=== PATIENT | male | born 1980 | race Caucasian/White ===

== ENCOUNTER 2016-10-09 11:40 | Emergency (ER) | payer OTHER ==
[~2016-10-09] VITALS: Ht 175.3 cm; Wt 103.0 kg
[~2016-10-09 11:40] MED LIST: FIORIC PO
[2016-10-09 11:57] VITALS: BP 146/92; PULSE 81; RESP 16; TEMP 98.7; O2SAT 98
--- NOTE | 2016-10-09 12:06 | PD ---
HPI Chief Complaint: Back/ Neck Pain or Injury Time Seen by Provider: 12:06 Travel History International Travel<30 days: No Contact w/Intl Traveler<30days: No Traveled to known affect area: No History of Present Illness HPI 35-year-old male presents to emergency Department with sudden onset lower back pain and spasm since yesterday. Patient works at a local [employer] operation, states he did not feel well yesterday and went home. Patient states he laid down most of the afternoon, which she feels causes back to stiffen up. He states he woke up this morning with back pain and stiffness and try to go to work. He states his pain worsened to the point where he could not work. Patient denies numbness, tingling, or radicular symptoms as needed lower extremity. He describes the pain as an 8/10 and spasming. Patient states he's had pain similar to this in the past but not to this extent. He denies any specific injury. Patient states she is allergic to tramadol. PFSH Past Medical History Diminished Hearing: No Immunizations Current: Yes Past Surgical History Abdominal Surgery: Yes (HERNIA REPAIR) Appendectomy: Yes Social History Alcohol Use: Yes (SOCIAL) Tobacco Use: No Substance Use: No Allergies-Medications (Allergen,Severity, Reaction): Coded Allergies: Tramadol (Verified Allergy, Severe, THROAT CLOSING, 10/09/16) Reported Meds & Prescriptions Reported Meds & Active Scripts Active No Active Prescriptions or Reported Medications Review of Systems Except as stated in HPI: all other systems reviewed are Neg General / Constitutional: No: Fever Eyes: No: Visual changes HENT: No: Headaches Cardiovascular: No: Chest Pain or Discomfort Respiratory: No: Shortness of Breath Gastrointestinal: No: Abdominal Pain Genitourinary: No: Dysuria Musculoskeletal: No: Pain Skin: No Rash Neurologic: No: Weakness Psychiatric: No: Depression Endocrine: No: Polydipsia Hematologic/Lymphatic: No: Easy Bruising Physical Exam Narrative GENERAL: Patient appears in moderate distress. SKIN: Warm and dry. Normal color. Normal turgor. No rash. HEAD: Atraumatic. Normocephalic. EYES: Pupils equal and round. No scleral icterus. No injection or drainage. ENT: No nasal bleeding or discharge. Mucous membranes pink and moist. NECK: Trachea midline. Supple nontender. CARDIOVASCULAR: Regular rate and rhythm. RESPIRATORY: No accessory muscle use. Clear to auscultation. Breath sounds equal bilaterally. GASTROINTESTINAL: Abdomen soft, non-tender, nondistended. Hepatic and splenic margins not palpable. MUSCULOSKELETAL: Extremities without clubbing, cyanosis, or edema. No obvious deformities. Patient has bilateral lower lumbar tenderness with palpation, but no bony tenderness or step-off in the lower lumbar spine. Negative straight leg raise pain bilaterally. NEUROLOGICAL: Awake and alert. No obvious cranial nerve deficits. Motor grossly within normal limits. Five out of 5 muscle strength in the arms and legs. Normal speech. PSYCHIATRIC: Appropriate mood and affect; insight and judgment normal. Data Data Last Documented VS Vital Signs Date Time Temp Pulse Resp B/P Pulse Ox O2 Delivery O2 Flow Rate FiO2 10/09/16 11:57 98.7 81 16 146/92 98 Orders Ketorolac Inj (Toradol Inj) (10/09/16 12:30) [facility] Medical Decision Making Medical Screen Exam Complete: Yes Emergency Medical Condition: Yes Differential Diagnosis Low back pain. Muscle spasm. Lumbago. Narrative Course Patient is medically stable at time of exam. Radiographic imaging is not felt warranted based on my history and physical. Patient is given Toradol 60 mg IM. Patient sent home with ibuprofen 800 mg 3 times daily with food #30. Patient is to take extra strength Tylenol 1000 mg every 6 hours #60. Patient given Norflex 100 mg twice a day #10. Patient Is to use heat, gentle stretching, and follow-up with local primary care physician. Note for work is given. Patient can return to emergency department if symptoms worsen as discussed. Diagnosis Primary Impression: Acute low back pain Qualified Code: M54.5 - Acute bilateral low back pain without sciatica Additional Impression: Muscle spasm of back Referrals: Primary Care Physician Patient Instructions: Acute Low Back Pain (ED), General Instructions, Lower Back Exercises (ED), Upper Back Exercises (GEN) Departure Forms: Work Release Enter return to work date: Oct 11, 2016 Additional Instructions: Radiographic imaging is not felt warranted based on my history and physical. Patient is given Toradol 60 mg IM. Patient sent home with ibuprofen 800 mg 3 times daily with food #30. Patient is to take extra strength Tylenol 1000 mg every 6 hours #60. Patient given Norflex 100 mg twice a day #10. Patient Is to use heat, gentle stretching, and follow-up with local primary care physician. Note for work is given. Patient can return to emergency department if symptoms worsen as discussed. Med/Other Pt SpecificInfo: Prescription(s) given Scripts No Active Prescriptions or Reported Meds Disposition: 01 DISCHARGE HOME Condition: Stable Eduardo Agudelo Oct 09, 2016 12:06
[2016-10-09] MEDS ORDERED: KETOROLAC TROMETHAMINE 60 MG/2 ML (IM) VIAL IM ONE (12:30)
[2016-10-09] MEDS ORDERED: ORPH100T99 PO (12:41)
[2016-10-09] MEDS ORDERED: IBUP800T23 PO (12:41)
[2016-10-09] MEDS ORDERED: EXTR500C PO (12:50)
== END 2016-10-09 12:55 | disposition home or self-care (01) ==
LOC: PHEFT 11:40
DX: M54.5 Low back pain (principal); M62.830 Muscle spasm of back
CPT/HCPCS: 96372; 99283; J1885

== ENCOUNTER 2016-10-19 06:31 | Emergency (ER) | payer OTHER ==
[~2016-10-19] VITALS: Ht 175.3 cm; Wt 102.0 kg
[~2016-10-19 06:31] MED LIST changes: +EXTR500C PO; -FIORIC PO; +IBUP800T23 PO; +ORPH100T99 PO
[2016-10-19 06:35] VITALS: BP 138/92; PULSE 74; RESP 16; TEMP 98.4; O2SAT 96
[2016-10-19 07:05] VITALS: RESP 16
[2016-10-19] MEDS ORDERED: LORazepam 2 MG/ML VIAL IM ONE (07:30)
[2016-10-19] MEDS ORDERED: KETOROLAC TROMETHAMINE 60 MG/2 ML (IM) VIAL IM ONE (07:30)
[2016-10-19] MEDS ORDERED: MORPHINE SULFATE 8 MG/ML INJ IM ONE (07:30)
--- NOTE | 2016-10-19 07:34 | PD ---
HPI . Low back pain Chief Complaint: Back/ Neck Pain or Injury Time Seen by Provider: 07:28 Travel History International Travel<30 days: No Contact w/Intl Traveler<30days: No Traveled to known affect area: No History of Present Illness HPI Patient presents with low back pain which started about 10 days ago. He states the pain started acutely when he tried to get out of the bed about 10 days ago. He was seen here at that time and was given prescriptions for Motrin, Tylenol and Norflex. He was given instructions to do stretching exercises. He states that he has done all of that and has also seen a chiropractor but he is worse rather than better. He states that he now has pain radiating down his left leg. He denies any associated fever or incontinence. He has not noted any exacerbating factors. He states that the pain is relieved temporarily by stretching. PFSH Past Medical History Diminished Hearing: No Inguinal Hernia: Yes (right groin repair) Musculoskeletal: Yes (back pain) Immunizations Current: Yes Tetanus Vaccination: < 5 Years Influenza Vaccination: No Past Surgical History Abdominal Surgery: Yes (HERNIA REPAIR, right groin ) Appendectomy: Yes Social History Alcohol Use: Yes (SOCIAL-beer) Tobacco Use: No Substance Use: No Allergies-Medications (Allergen,Severity, Reaction): Coded Allergies: Tramadol (Verified Allergy, Severe, THROAT CLOSING, 10/19/16) Reported Meds & Prescriptions Reported Meds & Active Scripts Active Acetaminophen Extra Strength (Acetaminophen) 500 Mg Cap 1,000 Mg PO Q6H PRN Orphenadrine CR (Orphenadrine Citrate) 100 Mg Tab 100 Mg PO Q12HR Ibuprofen 800 Mg Tab 800 Mg PO Q8H PRN Review of Systems Except as stated in HPI: all other systems reviewed are Neg General / Constitutional: No: Fever, Chills Genitourinary: No: Incontinence Musculoskeletal: Positive: Myalgias, Pain Neurologic: No: Weakness, Paresthesia, Incontinence Physical Exam Narrative GENERAL: Awake and alert. He is standing beside the stretcher flexed at the waist and supporting himself on the stretcher. SKIN: Warm and dry. CARDIOVASCULAR: Regular rate and rhythm. RESPIRATORY: No accessory muscle use. MUSCULOSKELETAL: No obvious deformities. No edema. Tender in the lower lumbar spine and to the left lower lumbar spine. NEUROLOGICAL: Awake and alert. No obvious cranial nerve deficits. Motor grossly within normal limits. Normal speech. Normal gait. PSYCHIATRIC: Appropriate mood and affect; insight and judgment normal. Data Data Last Documented VS Vital Signs Date Time Temp Pulse Resp B/P Pulse Ox O2 Delivery O2 Flow Rate FiO2 10/19/16 07:05 16 10/19/16 06:35 98.4 74 138/92 96 Orders Spine, Lumbar Comp W/Obliq (10/19/16 07:28) Ketorolac Inj (Toradol Inj) (10/19/16 07:30) Lorazepam Inj (Ativan Inj) (10/19/16 07:30) Morphine Inj (Morphine Inj) (10/19/16 07:30) [facility] Medical Decision Making Medical Screen Exam Complete: Yes Emergency Medical Condition: Yes Medical Record Reviewed: Yes (patient was seen here on 10/09. He was given prescriptions for Motrin and Norflex and was instructed to take Tylenol. He was also instructed to use heat and to do stretching exercises.) Differential Diagnosis Differential diagnosis includes but is not limited to degenerative disc disease , spinal stenosis, lumbar radiculopathy, muscular pain., kidney colic, pyelonephritis, AAA. Narrative Course Patient presents with continued low back pain. He did not have any imaging studies done here on 10/09. I have ordered plain films. In the meantime, he will be treated with IM Toradol, IM morphine and IM Ativan. Last Impressions Lumbar Spine X-Ray 10/19/16727 Signed Impressions: Service Date/Time: Wednesday, October 19, 2016 07:39 - CONCLUSION: No significant or acute lumbar spine abnormality is identified. There may be mild decreased disc height at L5-S1. Saleem Zheng MD The lumbar spine films were independently viewed by me. He has loss of the normal lordotic curvature. Diagnosis Primary Impression: Acute low back pain Qualified Code: M54.42 - Acute left-sided low back pain with left-sided sciatica Additional Impression: Muscle spasm of back Referrals: Tong Davis MD 3 days Patient Instructions: General Instructions, Narcotic given in the ED Med/Other Pt SpecificInfo: Prescription(s) given Scripts Cyclobenzaprine (Flexeril)10 Mg Tab10 Mg PO TID #90 TAB Ref 0 Prov:Poly Vuong MD 3/10/17 Hydrocodone-Acetaminophen ([place])5-325 mg Tab1-2 Tab PO Q6H PRN (PAIN) #12 TAB Ref 0 Prov:Poly Vuong MD 10/19/16 Prednisone (48) 10 mg tab Dose Pack 10 Mg Dspk10 Mg PO DIRECTED #1 DSPK Ref 0 Prov:Poly Vuong MD 10/19/16 Disposition: 01 DISCHARGE HOME Condition: Stable Poly Vuong MD Oct 19, 2016 07:34
--- NOTE | 2016-10-19 08:10 | RADHPO ---
EXAM DATE/TIME: 10/19/2016 07:39 [facility] COMPARISON: No previous studies available for comparison. INDICATIONS : Low back pain with no known injury. MEDICAL HISTORY : None. SURGICAL HISTORY : None. ENCOUNTER: Initial ACUITY: 3 days PAIN SCORE: 10/10 LOCATION: Left lumbar spine FINDINGS: 5 views of the lumbar spine demonstrate 5 nonrib-bearing lumbar vertebral bodies. No fracture or comp ression deformity is present. There is minimal decreased disc height at L5-S1. Remaining disc heights are preserved. No anterolisthesis, retrolisthesis, or pars defects are visualized. Pelvic bones and soft tissues demonstrate no acute finding. CONCLUSION: No significant or acute lumbar spine abnormality is identified. There may be mild decreased disc heig ht at L5-S1. Saleem Zheng MD on October 19, 2016 at 8:06 Board Certified Radiologist. This report was verified electronically.
[2016-10-19] MEDS ORDERED: PRED10PA2 PO (08:21)
[2016-10-19] MEDS ORDERED: CYCL1TAB29 PO (08:21)
[2016-10-19] MEDS ORDERED: NORC5TAB PO (08:21)
== END 2016-10-19 09:02 | disposition home or self-care (01) ==
LOC: PHED 06:31 → PHEFT 09:02
DX: M54.42 Lumbago with sciatica, left side (principal)
CPT/HCPCS: 72110; 96372; 96374; 99283; J1885; J2060; J2270

== ENCOUNTER 2017-02-02 08:21 | Emergency (ER) | payer OTHER ==
[~2017-02-02] VITALS: Ht 175.3 cm; Wt 101.5 kg
[~2017-02-02 08:21] MED LIST changes: +CYCL1TAB29 PO; -IBUP800T23 PO; +NORC5TAB PO; -ORPH100T99 PO; +PRED10PA2 PO
[2017-02-02 08:30] VITALS: BP 139/96; PULSE 90; RESP 16; TEMP 98.1; O2SAT 98
[2017-02-02] MEDS ORDERED: KETOROLAC TROMETHAMINE 60 MG/2 ML (IM) VIAL IM ONE (09:30)
[2017-02-02] MEDS ORDERED: NAPR-239 PO (09:32)
[2017-02-02] MEDS ORDERED: CODE30TA2 PO (09:32)
--- NOTE | 2017-02-02 09:32 | PD ---
HPI Chief Complaint: Pain: Acute or Chronic Time Seen by Provider: 09:11 Travel History International Travel<30 days: No Contact w/Intl Traveler<30days: No Traveled to known affect area: No History of Present Illness HPI PATIENT GIVES HISTORY OF PAIN AT BASE OF TOE FOR MONTHS USUALLY AFFECTING HIS RIGHT TOE BUT OVER LAST TWO DAYS IT HAS BEEN HIS BASE OF LEFT TOE...DENIES FEVER /SKIN DISCOLORATION AT THIS TIME PFSH Past Medical History Diminished Hearing: No Inguinal Hernia: Yes (right groin repair) Musculoskeletal: Yes (back pain) Immunizations Current: Yes Tetanus Vaccination: Unknown Past Surgical History Abdominal Surgery: Yes (HERNIA REPAIR, right groin ) Appendectomy: Yes Social History Alcohol Use: Yes (SOCIAL-beer) Tobacco Use: No (NEVER) Substance Use: No Allergies-Medications (Allergen,Severity, Reaction): Coded Allergies: Tramadol (Verified Allergy, Severe, Throat swelling , 02/02/17) Reported Meds & Prescriptions Reported Meds & Active Scripts Active Naproxen EC (Naproxen) 375 Mg Tabdr 375 Mg PO BID Codeine-Acetaminophen 30-300 mg Tab 1 Tab PO Q4H PRN Review of Systems Except as stated in HPI: all other systems reviewed are Neg Musculoskeletal: Positive: Pain (TO BASE OF LEFT TOE) Physical Exam Narrative GENERAL: SKIN: Warm and dry. HEAD: Atraumatic. Normocephalic. EYES: Pupils equal and round. No scleral icterus. No injection or drainage. ENT: No nasal bleeding or discharge. Mucous membranes pink and moist. NECK: Trachea midline. No JVD. CARDIOVASCULAR: Regular rate and rhythm. RESPIRATORY: No accessory muscle use. Clear to auscultation. Breath sounds equal bilaterally. GASTROINTESTINAL: Abdomen soft, non-tender, nondistended. Hepatic and splenic margins not palpable. MUSCULOSKELETAL: Extremities without clubbing, cyanosis, or edema. No obvious deformities....LEFT HALLUX BASE TTP, NO SKIN DISCOLORATION, NL DP AND PTI PULSES. NEUROLOGICAL: Awake and alert. No obvious cranial nerve deficits. Motor grossly within normal limits. Five out of 5 muscle strength in the arms and legs. Normal speech. PSYCHIATRIC: Appropriate mood and affect; insight and judgment normal. Data Data Last Documented VS Vital Signs Date Time Temp Pulse Resp B/P Pulse Ox O2 Delivery O2 Flow Rate FiO2 02/02/17 08:30 98.1 90 16 139/96 98 Orders Foot, Complete ([id number]) (02/02/17 ) Ketorolac Inj (Toradol Inj) (02/02/17 09:30) [facility] Medical Decision Making Medical Screen Exam Complete: Yes Emergency Medical Condition: Yes Medical Record Reviewed: Yes Differential Diagnosis TOE CONTUSION V FX V DISLOCATION/SUBLUXATION V GOUT Narrative Course NO E/O TRAUMA, XRAYS ARE NEG FOR FX//DISLOCATION/SUBLUXATION AT THIS POINT WILL D/C HOME (REFER TO [employer]GER FOR FURTHER EVAL) Diagnosis Primary Impression: LEFT FOOT PAIN Referrals: Kassi Herring DPM Scripts Naproxen DR (Naproxen EC)375 Mg [id number] Mg PO BID #14 TAB Ref 0 Prov:Esdras Trinh MD 02/02/17 Codeine-Acetaminophen 30-300 mg Tab1 Tab PO Q4H PRN (PAIN) #20 TAB Prov:Esdras Trinh MD 02/02/17 Disposition: 01 DISCHARGE HOME Condition: Stable Esdras Trinh MD Feb 02, 2017 09:32
--- NOTE | 2017-02-02 10:14 | RADRPT ---
EXAM DATE/TIME: 02/02/2017 09:43 [facility] COMPARISON: No previous studies available for comparison. INDICATIONS : Sudden onset of left foot pain, worse at big toe, no known injury MEDICAL HISTORY : None. SURGICAL HISTORY : None. ENCOUNTER: Initial ACUITY: 1 day PAIN SCORE: 8/10 LOCATION: Left foot FINDINGS: Three view examination of the left foot demonstrates no soft tissue swelling, dislocation, or fractur e. The tarsal bones appear intact. The interphalangeal and metatarsophalangeal joints are intact. The calcaneus is intact. Bony mineralization is normal. CONCLUSION: Normal examination for a patient of this age. Fernando Ivan MD on February 02, 2017 at 10:11 Board Certified Radiologist. This report was verified electronically.
== END 2017-02-02 10:36 | disposition home or self-care (01) ==
LOC: PHED 08:21 → PHEFT 10:36
DX: M25.572 Pain in left ankle and joints of left foot (principal)
CPT/HCPCS: 73630; 96372; 99284; J1885

== ENCOUNTER 2017-04-04 18:34 | Emergency (ER) | payer OTHER ==
[~2017-04-04] VITALS: Ht 175.3 cm; Wt 100.9 kg
[~2017-04-04 18:34] MED LIST changes: +CODE30TA2 PO; -CYCL1TAB29 PO; -EXTR500C PO; +NAPR-239 PO; -NORC5TAB PO; -PRED10PA2 PO
[2017-04-04 18:39] VITALS: BP 150/90; PULSE 107; RESP 16; TEMP 97.7; O2SAT 96
[2017-04-04] MEDS ORDERED: INDO50CA PO (19:04)
--- NOTE | 2017-04-04 19:05 | PD ---
HPI Chief Complaint: Musculoskeletal Complaint Time Seen by Provider: 18:53 Travel History International Travel<30 days: No Contact w/Intl Traveler<30days: No Traveled to known affect area: No History of Present Illness HPI 36-year-old male with chief complaint of left foot pain 2 weeks. Patient reports the pain originated in his left great toe which spontaneously resolved and then reemerged in the heel 3 days ago. Patient denies injury. He reports he's had similar episodes in the opposite foot and the great toe. He reports these episodes usually last about a week and resolved on their. He denies ever being officially diagnosed with gout. He does report over the last 2 weeks he has been eating a lot of red meat and drinking beer. He denies fever or chills. He reports the pain is worse with weightbearing and movement of the foot. Slightly improved with rest. Pain scale 5/10. PFSH Past Medical History Medical History: Denies Significant Hx Diminished Hearing: No Inguinal Hernia: Yes (right groin repair) Musculoskeletal: Yes (back pain) Immunizations Current: Yes Past Surgical History Abdominal Surgery: Yes (HERNIA REPAIR, right groin ) Appendectomy: Yes Social History Alcohol Use: Yes (SOCIAL-beer) Tobacco Use: No (NEVER) Substance Use: No Allergies-Medications (Allergen,Severity, Reaction): Coded Allergies: tramadol (Unverified Allergy, Severe, Throat swelling , 04/04/17) Reported Meds & Prescriptions Reported Meds & Active Scripts Active Indomethacin 50 Mg Cap 50 Mg PO TID 5 Days Take with food, milk, or antacids to decrease stomach adverse effects. Review of Systems Except as stated in HPI: all other systems reviewed are Neg Physical Exam Narrative GENERAL: Well-nourished, well-developed patient. SKIN: Focused skin assessment warm/dry. HEAD: Normocephalic. EYES: No scleral icterus. No injection or drainage. CARDIOVASCULAR: Regular rate and rhythm without murmurs, gallops, or rubs. RESPIRATORY: Breath sounds equal bilaterally. No accessory muscle use. GASTROINTESTINAL: Abdomen soft, non-tender, nondistended. MUSCULOSKELETAL: No cyanosis, or edema. Left lower extremity: Notable tenderness to the left great toe as well as the left heel. The area is mildly erythematous and warm. There is no evidence of puncture wound or trauma. No deformity. 2+ distal pulses. Brisk cap refill. Data Data Last Documented VS Vital Signs Date Time Temp Pulse Resp B/P (MAP) Pulse Ox O2 Delivery O2 Flow Rate FiO2 04/04/17 18:39 97.7 107 16 150/90 (110) 96 Orders Orders Ketorolac Inj (Toradol Inj) (04/04/17 19:15) [facility] Medical Decision Making Medical Screen Exam Complete: Yes Emergency Medical Condition: Yes Differential Diagnosis Gouty arthritis, plantar fasciitis, midfoot sprain Narrative Course 36-year-old male with chief complaint of left foot pain. The pain originated left great toe migrated to the health foot. Patient reports he's had similar episodes in the opposite foot originating in the right great toe. Each episode has spontaneously resolved on its own. Patient denies history of former bleeding diagnosed with gout. On physical exam he has mild erythema and warmth to the left foot consistent with gouty arthritis. Patient will be given a shot of Toradol discharged home on Indocin and instructed to follow a gout friendly diet. He has an appointment for follow-up with his primary doctor Saturday. Diagnosis Primary Impression: Gouty arthritis of toe of left foot Referrals: Primary Care Physician Departure Forms: Tests/Procedures, Work Release Enter return to work date: Apr 06, 2017 Additional Instructions: Take the medication as prescribed. Follow gout friendly diet. Follow-up with her primary doctor next week. Return to emergency department if he developed new or worsening symptoms. Scripts Indomethacin (Indomethacin) 50 Mg Cap 50 MG PO TID for 5 Days, CAP 0 Refills Take with food, milk, or antacids to decrease stomach adverse effects. Prov: Claudia Hurt 04/04/17 Disposition: 01 DISCHARGE HOME Condition: Stable Claudia Hurt Apr 04, 2017 19:05
[2017-04-04] MEDS ORDERED: KETOROLAC TROMETHAMINE 60 MG/2 ML (IM) VIAL IM ONE (19:15)
== END 2017-04-04 19:33 | disposition home or self-care (01) ==
LOC: PHEFT 18:34
DX: M10.079 Idiopathic gout, unspecified ankle and foot (principal)
CPT/HCPCS: 96372; 99284; J1885